=== PATIENT | female | born 1990 ===

== ENCOUNTER → 2025-04-21 | Outpatient (CLI) | payer OTHER ==
[2025-04-21 18:25] LABS: Source, Urine Clean Catch
[2025-04-21 19:36] LABS: Red Blood Cells, Urine 0-2 /hpf (0-2); White Blood Cells, Urine 0-2 /hpf (0-5)
[2025-04-21 19:44] LABS: U Amphetamine Screen Not Detected; U Barbituate Screen Not Detected; U Benzodiazapine Screen Not Detected; U Buprenorphine Screen Not Detected; U Cannabinoids Screen Not Detected; U Cocaine Screen Not Detected; U Methadone Screen Not Detected; U Methamphetamine Screen Not Detected; U Opiates Screen Not Detected; U Oxycodone Screen Not Detected; U Phencyclidine Screen Not Detected
== END ==
LOC: LAB 18:22 → LAB SHORT 18:22
PROVIDERS: Advanced Practice Midwife
DX: Z34.81 Encounter for supervision of other normal pregnancy, first trimester (principal)
CPT/HCPCS: 81015; 87086

== ENCOUNTER → 2025-05-11 | Outpatient (CLI) | payer OTHER ==
[2025-05-11 19:04] LABS: Candida Group, PCR NOT DETECTED (NOT DETECT); Candida glabrata-krusei, PCR NOT DETECTED (NOT DETECT)
[2025-05-11 19:43] LABS: Bacterial Vaginosis PCR Positive (NEGATIVE)
== END ==
LOC: LAB 15:24 → LAB SHORT 15:24
PROVIDERS: Advanced Practice Midwife
DX: N76.0 Acute vaginitis (principal)
CPT/HCPCS: 81515

== ENCOUNTER → 2025-05-26 | Outpatient (CLI) | payer OTHER ==
[2025-05-26 16:39] LABS: Bacterial Vaginosis PCR Negative (NEGATIVE); Candida Group, PCR NOT DETECTED (NOT DETECT); Candida glabrata-krusei, PCR NOT DETECTED (NOT DETECT)
== END ==
LOC: LAB SHORT 14:26 → LAB 14:26
PROVIDERS: Advanced Practice Midwife
DX: N76.0 Acute vaginitis (principal); B96.89 Other specified bacterial agents as the cause of diseases classified elsewhere
CPT/HCPCS: 81515

== ENCOUNTER → 2025-06-12 | Outpatient (CLI) | payer OTHER ==
[2025-06-12 14:25] LABS: Candida Group, PCR NOT DETECTED (NOT DETECT); Candida glabrata-krusei, PCR NOT DETECTED (NOT DETECT)
[2025-06-12 14:26] LABS: Bacterial Vaginosis PCR Positive (NEGATIVE)
== END ==
LOC: LAB SHORT 10:47 → LAB 10:47
PROVIDERS: Obstetrics & Gynecology
DX: N89.8 Other specified noninflammatory disorders of vagina (principal)
CPT/HCPCS: 81515

== ENCOUNTER → 2025-06-20 | Outpatient (CLI) | payer OTHER ==
[2025-06-20 19:57] LABS: Candida Group, PCR NOT DETECTED (NOT DETECT); Candida glabrata-krusei, PCR NOT DETECTED (NOT DETECT)
[2025-06-21 00:34] LABS: Bacterial Vaginosis PCR Positive (NEGATIVE)
== END ==
LOC: LAB SHORT 17:34 → LAB 17:34
PROVIDERS: Advanced Practice Midwife
DX: N76.0 Acute vaginitis (principal)
CPT/HCPCS: 81515